=== PATIENT | male | born 1990 | race Caucasian/White ===

== ENCOUNTER 2017-04-05 02:55 | Emergency (ER) | payer SELFPAY ==
[~2017-04-05] VITALS: Ht 172.7 cm; Wt 78.5 kg
--- NOTE | 2017-04-05 02:55 | NUR ---
[facility] OFFICER TO [facility] OF[facility]
[2017-04-05 03:08] VITALS: BP 116/77
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
[2017-04-05 04:11] VITALS: BP 119/76
== END 2017-04-05 04:10 ==
LOC: MED 02:55
DX: Z02.89 Encounter for other administrative examinations (principal)
CPT/HCPCS: 71010; 99283